=== PATIENT | female | born 1970 | race American Indian/Alaskan Native ===

== ENCOUNTER 2018-05-19 06:18 | Inpatient (IN) | payer BC ==
--- NOTE | 2018-05-15 11:02 | Anesthesia Consultation ---
Anesthesia Consult and Med Hx Date of service: 05/15/18 - Airway Anesthetic Teeth Evaluation: Good ROM Head & Neck: Adequate Mental/Hyoid Distance: Adequate Mallampati Class: Class II Intubation Access Assessment: Probably Good - Pulmonary Exam CTA: Yes - Cardiac Exam Cardiac Exam: RRR - Pre-Operative Health Status ASA Pre-Surgery Classification: ASA2 Proposed Anesthetic Plan: General - Pre-Anesthesia Comment Pre-Anesthesia Comments: Posterior dental implant - Pulmonary Hx Smoking: Yes (quit x 5 years) - Central Nervous System Hx Psychiatric Problems: Yes - Hematic Hx Anemia: Yes - Other Systems Hx Cancer: No
[2018-05-15 11:05] LABS: Basophils % (Auto) 0.7 % (0.0-1.8); Eosinophils # (Auto) 0.1 K/mm3 (0.0-0.4); Eosinophils % (Auto) 1.1 % (0.0-4.3); Hematocrit 41.2 % (30.3-42.9); Hemoglobin 13.7 gm/dl (10.1-14.3); Lymphocytes # (Auto) 1.8 K/mm3 (1.2-5.4); Lymphocytes % (Auto) 24.9 % (13.4-35.0); Mean Corpuscular HGB Conc 33 % (30-34); Mean Corpuscular Volume 83 fl (79-97); Monocytes # (Auto) 0.7 K/mm3 (0.0-0.8); Monocytes % (Auto) 9.8 % (0.0-7.3); Platelet Count 262 K/mm3 (140-440); Red Blood Count 4.99 M/mm3 (3.65-5.03); Red Cell Distribution Width 13.4 % (13.2-15.2)
[2018-05-15 11:18] LABS: BUN/Creatinine Ratio 17; Blood Urea Nitrogen 10 mg/dL (7-17); Calcium 9.3 mg/dL (8.4-10.2); Hemolysis Index 17
--- NOTE | 2018-05-18 16:55 | History and Physical Report ---
History of Present Illness Date of examination: 05/15/18 History of present illness: Patient has been reassessed/reevaluated. H&P has been reviewed. No interval changes. This is a 48 years old female who presents with complains of menorrhagia, dysmenorrhea, pelvic pain and bowel problems, but denies abnormal pap smears, metrorrhagia, dyspareunia, post-coital bleeding, abnormal periods, abnormal vaginal discharge, breast mass or lumps, depression, anxiety, urinary symptoms, chest pain, palpitations, shortness of breath, leg swelling, back pain, abdominal pain and headaches. The patient notes that she is sexually active and uses contraception. The patient reports that she has regular menses and cycles q 26-28 days. The patient also presents with menstrual disorder. The symptoms began >1 year ago. She complains of irregular menses, heavy bleeding, dysmenorrhea and history of fibroids, but denies mid-cycle spotting, lack of menses, clotting, history of ovarian cysts, history of thyroid disease, history of PCOS, history of bleeding disorder, lightheadedness, fatigue and cramping. Menstrual flow la sts 6 days and 7 days. Patient reports that for pain she uses Tylenol. The patient also presents with uterine fibroids. She complains of menorrhagia, abdominal pain, abdominal pressure, pelvic pain, pelvic pressure and intermenstrual bleeding. Treatment tried to date includes uterine artery embolization. Prior to today's visit the patient has had US of pelvis. Patient's symptoms when present disrupts her normal daily activities Patient desires definitive treatment Vital Signs: Patient Profile: 48 Years Old Female LMP: 04/28/2018 Height: 67 inches (170.18 cm) Weight: 184 pounds BMI: 28.82 Menstrual History: LMP (date): 04/28/2018 Current Method of Contraception: BTL Date of Last Pap Smear: 02/15/2018 Past History : 7 Term Births: 1 Premature Births: 0 Living Children: 1 Para: 1 Mult. Births: 0 Prev : 0 Aborta: 6 Elect. Ab: 3 Spont. 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 of genital herpes: yes Partner hx. of genital herpes: yes Hx of STD: None Current Allergies (reviewed today): * LATEX (Critical) Past Medical History: Fibromyalgia Fibroids Past Surgical History: Lsc Tubal Ligation (2002) UFE (2011) Right foot D&C:x 4 Social History: Marital Status: Children: 1 Occupation: Customer Services Patient is Smoking History: Patient has never smoked. Risk Factors: Smoked Tobacco Use: Former smoker Smokeless Tobacco Use: Never Drug use: no HIV high-risk behavior: no Alcohol use: yes Exercise: no Seatbelt use: 100 % PAP Smear History: Date of Last PAP Smear: 02/15/2018 Review of Systems General Complains of fatigue. Denies fever, chills, sweats, anorexia, weakness, malaise, weight loss and sleep disorder. Complains of menorrhagia, pelvic pain and painful periods. Denies vaginal discharge, incontinence, dysuria, hematuria, urinary frequency, amenorrhea, abnormal vaginal bleeding, genital sores, decreased libido, painful sex, urinary urgency, hot flashes, vaginal dryness, vaginal itching and vaginal odor. CV Denies chest pains, palpitations, syncope, dyspnea on exertion, orthopnea, PND and peripheral edema. Resp Denies cough, dyspnea at rest, excessive sputum, hemoptysis, wheezing and pleurisy. GI Denies nausea, vomiting, diarrhea, constipation, change in bowel habits, abdominal pain, melena, hematochezia, jaundice, gas/bloating, indigestion/heartburn, dysphagia and odynophagia. Breast Denies left breast lump, right breast lump, nipple discharge, bloody discharge from nipple, breast pain, abnormal mammogram and breast enlargement. Psych Denies depression, anxiety, irritability and mood swings. Past History Past Medical History: other (See HPI) Past Surgical History: Other (See HPI) Social history: , full code, other (See HPI) Family history: other Medications and Allergies Allergies Allergy/AdvReac Type Severity Reaction Status Date / Time latex Allergy Blisters Verified 05/10/18 17:02 Home Medications Medication Instructions Recorded Confirmed Last Taken Type Duloxetine HCl [DULoxetine] 30 mg PO DAILY 05/10/18 05/19/18 05/18/18 17:00 History Active Meds: Active Medications Lactated Ringer's (Lactated Ringers) 1,000 mls @ 100 mls/hr IV DIRECT RAMBO Review of Systems Constitutional: other (See HPI) Exam - Physical Exam Narrative exam: PHYSICAL EXAM HEENT: normocephalic, no lesions or deformities Neck/Thyroid: supple, thyroid normal Skin no significant abnormal lesions or rashes Chest: respiratory effort normal, clear to auscultation CV: regular, normal S1-S2, no murmur, no rub, no gallop Abdomen: normal bowel sounds, soft, nontender, no HSM obese Musculoskeletal: grossly normal ROM in joints, no joint tenderness or muscle weakness Neuro: no gross anomalities Extremities: no clubbing, cyanosis, or edema 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 Questions answered. Discussed with patient various medical, surgical and radiological therapies common for treatment including myomectomy hysterectomy and uterine artery embolization Patient desires definitive treatment Patient desires hysterectomy Discussed risks and benefits of laparotomy, laparoscopy, vaginal and robotic assisted approaches for hysterectomies Patient desires robotic assisted total hysterectomy. Yvette to precert and schedule Patient desires robotic assisted total hysterectomy. Consent reviewed and signed . The risks and alternatives for this surgery were reviewed with the patient. Discuss the risks of the surgery including inf ection, bleeding possibly heavy enough to require a blood transfusion, possible damage to bowel, bladder or ureter. Patient understand that this surgery with make her sterile.Patient understands if her ovaries are removed she will become menopausal. Also if unable to complete robitcally a laparotomy may be required. Patient advised the small risks of spreading of malignancy if morcellator is used during the surgery patient understands and approve of use if necessary (2) Menorrhagia Current Visit: No Status: Acute Qualifiers: Menorrahagia type: with regular cycle Qualified Code(s): N92.0 - Excessive and frequent menstruation with regular cycle Plan to address problem: Probably secondary to # 1 (3) Dysmenorrhea Current Visit: No Status: Acute Plan to address problem: Probably secondary to # 1 (4) Fibromyalgia Current Visit: No Status: Chronic
[~2018-05-19 06:18] MED LIST: LACTATED RINGERS 1,000 ML IV SCH; PEPCID PO NR; VERSED IV NR
[2018-05-19] MEDS ORDERED: ANCEF/STERILE WATER 2 GM/20 ML IV NR (07:00)
[2018-05-19] MEDS ORDERED: MARCAINE 0.5% INFILTRATI ONE (07:24)
[2018-05-19] MEDS ORDERED: VERSED ONE (07:24)
[2018-05-19] MEDS ORDERED: SUBLIMAZE ONE ×2 (07:24→07:27)
[2018-05-19] MEDS ORDERED: DECADRON ONE ×2 (07:26→07:28)
[2018-05-19] MEDS ORDERED: XYLOCAINE 1% 20 mL ONE (07:26)
[2018-05-19] MEDS ORDERED: DIPRIVAN 10 MG/ML IV ONE ×2 (07:27→08:30)
[2018-05-19] MEDS ORDERED: XYLOCAINE MPF 2% ONE (07:28)
[2018-05-19] MEDS ORDERED: METHYLENE BLUE ONE ×2 (07:28→11:53)
[2018-05-19] MEDS ORDERED: ZOFRAN ONE (07:28)
[2018-05-19] MEDS ORDERED: ZEMURON IV ONE (07:28)
[2018-05-19] MEDS ORDERED: MARCAINE-EPI 0.25%-1:200,000 INFILTRATI ONE (07:29)
[2018-05-19] MEDS ORDERED: NEOSPORIN GU IR ONE ×2 (07:29→09:05)
[2018-05-19] MEDS ORDERED: TYLENOL PO NR (08:00)
[2018-05-19] MEDS ORDERED: NEURONTIN PO NR (08:00)
--- NOTE | 2018-05-19 08:57 | Anesthesia Day of Surgery ---
Anesthesia Day of Surgery - Day of Surgery Patient Examined: Yes Patient H&P Reviewed: Yes Patient is NPO: Yes Beta Blockers: No Cardiac Clearance: No Pulmonary Clearance: No Jean's Test: N/A
--- NOTE | 2018-05-19 09:03 | Anesthesia Consultation ---
Anesthesia Consult and Med Hx Date of service: 05/19/18 - Airway Anesthetic Teeth Evaluation: Good ROM Head & Neck: Adequate Mental/Hyoid Distance: Adequate Mallampati Class: Class III Intubation Access Assessment: Probably Good - Pulmonary Exam CTA: Yes - Cardiac Exam Cardiac Exam: RRR - Pre-Operative Health Status ASA Pre-Surgery Classification: ASA2 Proposed Anesthetic Plan: General Nerve Block: TAP block - Pulmonary Hx Smoking: Yes (quit x 5 years) - Central Nervous System Hx Psychiatric Problems: Yes - Hematic Hx Anemia: Yes - Other Systems Hx Cancer: No - Additional Comments Anesthesia Medical History Comments: ASA II 48 y.o.f. with history of anxiety/depression, bilateral tubal ligation, and uterine fibroids is scheduled for robotic hysterectomy. Patient has had no problems with anesthesia in past
[2018-05-19] MEDS ORDERED: NACL 0.9% IR ONE ×2 (09:05)
--- NOTE | 2018-05-19 09:05 | Event Note ---
Date: 05/19/18 (Difficult Airway New Designation ) Intubation Note: Patient was evaluated in preop holding area. No airway problems were noted and ariway was reassuring. During induction, patient required two hand mask ventilation. Patient required three attempts to successfully secure airway; first two attempts were conducted via direct laryngoscopy and metal mixer noted that patient had anterior positioning cords (Grade III) view. ETT unable to pass. Resumed patient D blade CMAC used to obtain Grade 1 view. Decadron 8mg IV was given to minimize/treat possible glottic swelling due to multiple attempts. Situation warrants that patient is designated a "difficult airway" for future surgeries.
[2018-05-19] MEDS ORDERED: NEO SYNEPHRINE/NS Syringe(OR USE) IV ONE ×2 (09:18→12:50)
[2018-05-19] MEDS ORDERED: DILAUDID IV PRN (09:32)
[2018-05-19] MEDS ORDERED: SUBLIMAZE IV PRN (09:32)
[2018-05-19] MEDS ORDERED: ZOFRAN IV PRN (09:32)
[2018-05-19] MEDS ORDERED: METHYLENE BLUE IV ONE (11:30)
[2018-05-19] MEDS ORDERED: DILAUDID ONE (11:58)
[2018-05-19] MEDS ORDERED: METHYLENE BLUE IRRIGATION ONE (12:45)
[2018-05-19] MEDS ORDERED: BLOXIVERZ ONE (13:15)
[2018-05-19] MEDS ORDERED: ROBINUL ONE (13:15)
--- NOTE | 2018-05-19 13:24 | Operative Report ---
Operative Report Operative Report: Date of procedure: 05/19/2018 Pre-operative diagnosis: Symptomatic leiomyomata with dysmenorrhea menorrhalgia failed conservative treatment Post-operative diagnosis: Same plus possible endometriotic diagnosis and pelvic adhesive disease Procedure name(s):Robotic Assisted Total Hysterectomy with bilateral s alpingectomy and repair of cystotomy Surgeon: Kaleb Deleon MD Gin Clerk: Camila Juares certified medical biller Anesthesia: General EBL: 75 ML Complications: Intraoperative cystotomy Findings: 14-16 week size uterus with multiple leiomyomata bilaterally interrupted fallopian tubes with normal ovaries bilaterally patient with adhesions posterior cul-de-sac is large intestines also adhesions on the second and cul-de-sac to the anterior abdominal wall and round ligament. Specimen(s): Uterus with cervix and bilateral fallopian tubes Procedure: Patient was brought to the operating room where general anesthesia was induced without difficulty. Patient was placed in the dorsal lithotomy position. Prepped and draped in the usual sterile manner for robotic procedure. Butterfield catheter was placed without difficulty. Speculum was placed in the vagina. A large V-Care Uterine manipulator was placed without difficulty. Attention was now switched to the patient's abdomen. A vertical supra-umbilicus incision was made with a scalpel. A 10-12 trocar was placed in this incision under direct visualization. Intra-abdominal placement was verified with no evidence of internal organ damage. The patient pelvic findings were noted as above. It was determined that the patient was a candidate for robotic procedure. On both sides the umbilical incision at about 8 cm, incisions were made for robotic trocar. Each robotic trocar was placed under direct visualization with no evidence of internal organ damage. Two phlebotomy lab assistant ports were then placed. One 5 mm trocar was placed 2 fingerbreadths above the right iliac crest. The second [address] between the camera port and the right robotic arms port after my positioning under the operating ríos during the surgery when noted needed additional retraction to release the cul-de-sac i adhesions and for manipulating the uterus surgery with adhesions noted to be lysed.. At this time the patient was placed in extreme Trendelenburg. The da Osmin robot was then docked on the patient's left side. The trocars connected to the robot appropriately. At this time I took my place under the robotic operating ríos. The posterior cul-de-sac adhesions were then noted and taken down robotically to try to recreate posterior cul-de-sac. Starting on the patient's right side the mesosalpinx of the distal tube were cauterized and cut and the tube was removed through the lower engineering inspection assistant port. Utero-ovarian complex was cauterized and cut. This was followed by cauterizing and cutting the right fallopian tube and right round ligament. The broad ligament was then opened. The bladder flap was formed anteriorly. The posterior broad ligament was then excised. The uterine vessels were skeletonized. The ureter was clearly seen out of the operative field. The bladder was pushed away from the anterior uterus. Attention was then switched to the patient's left side. The same procedure was repeated on the left side with perform the salpingectomy followed by isolating the uterine vessels cauterized and cutting and completing the bladder flap from the left side. At this time did have some difficulty manipulating the uterus attempt to reposition the care manipulator which appears to have resistance from an intracavatary lesion and the V care manipulator fell mostly appearing the lower uterine segment instead of the fundus. After inspecting the bladder flap insured no evidence of bladder injury, the colpotomy was then started anteriorly because of the scarring posterior the V care could not be positively identified. Incision started at 10:00 until the V-Care could be seen. This incision was extended from 10:00 to 2:00. Then from 10:00 to 6:00. Then from 2:00 to 6:00. At this time colpotomy was complete with no evidence of adjacent organ damage. The phlebotomy lab assistant remove the uterus from through the colpotomy site. The vaginal cuff was irrigated and cauterized and found to be hemostatic. The cuff was closed with roboticly using 0 V- Lock suture. This closure was hemostatic after irrigation and Bovie. Inspecting the bladder flap posterior bladder wall appears look thin. At this time inflated the bladder with methylene blue. After surgery approximately 120 mL of fluid two small cystotomies identified. This time cystotomy repair was done robotically with 20 and 3-0 Vicryl. The bladder was re-inflated to approximately 140 mL of methylene blue stained fluid with no leaking noted. All pedicles were inspected and found to be hemostatic. The ureters were identified bilaterally and found to be functioning normally. Patient received methylene blue IV and no evidence of leaking from either ureter. The Butterfield catheter was unclamped. Jones was placed on the cuff and pedicles for postoperative hemostasis . All instruments were then removed. The large trocar sites were closed in layers and 4-0 Vicryl. The smaller incisions were closed subcuticularly with 4-0 Vicryl. The patient tolerated procedure well. She was awakened in the operating room and accompanied to the recovery room in good condition.
[2018-05-19] MEDS ORDERED: D5LR 1,000 ML IV ONE (14:15)
[2018-05-19] MEDS ORDERED: NORCO 5/325 PO PRN (14:55)
[2018-05-19] MEDS ORDERED: D5LR 1,000 ML IV SCH (14:55)
[2018-05-19] MEDS ORDERED: MILK OF MAGNESIA PO PRN (14:55)
[2018-05-19] MEDS: TORADOL IV SCH (17:45)
[2018-05-19] MEDS: ANCEF/NS 1 GM/50 ML 1 GM/50 ML BAG IV SCH (17:49)
--- NOTE | 2018-05-19 18:38 | Event Note ---
Date: 05/19/18 Day of surgery. Discuss operative findings with patient. Discussed the adhesions and possible endometriosis and explained the cystotomy and need for prolonged Butterfield catheter. All questions answered. Patient without fever. Will ambulate in halls this evening. Good urine output. We will continue routine postoperative care. Will obtain H&H this evening.
[2018-05-19 19:28] LABS: Hematocrit 36.5 % (30.3-42.9); Hemoglobin 12.1 gm/dl (10.1-14.3)
[2018-05-20] MEDS: COLACE PO SCH ×2 (00:07→11:23)
[2018-05-20] MEDS: TORADOL IV SCH ×3 (00:11→11:23)
[2018-05-20] MEDS: ANCEF/NS 1 GM/50 ML 1 GM/50 ML BAG IV SCH (02:03)
[2018-05-20 06:31] LABS: Hematocrit 34.1 % (30.3-42.9); Hemoglobin 11.2 gm/dl (10.1-14.3)
--- NOTE | 2018-05-20 13:12 | Discharge Summary ---
Providers - Providers Date of Admission: 05/19/18 13:25 Date of discharge: 05/20/18 Attending physician: RAMA ORTEGA Primary care physician: DEVELOPMENT EDUCATOR Hospitalization Condition: Good Procedures: Robotic Assisted Total Hysterectomy with bilateral salpingectomy and repair of cystotomy Hospital course: See Operative note and event note. Today resting in bed with SCD's on and kramer catheter draining clear greenish urine, no obvious of blood. ~700mL urine in kramer bag. She has no complaints and requests d/c home Disposition: DC- TO HOME OR SELFCARE - Discharge Diagnoses (1) History of robot-assisted laparoscopic hysterectomy Status: Acute (2) Intraoperative bladder injury Status: Acute Core Measure Documentation - Palliative Care Palliative Care/ Comfort Measures: Not Applicable - Core Measures Any of the following diagnoses?: none Exam - Constitutional Vitals: Temp Pulse Resp BP Pulse Ox 98.3 F 107 H 18 110/55 95 05/20/18 12:10 05/20/18 12:10 05/20/18 12:10 05/20/18 12:10 05/20/18 12:10 General appearance: Present: no acute distress - Respiratory Respiratory effort: normal Respiratory: bilateral: CTA - Extremities Extremities: no ischemia, No edema - Abdominal General gastrointestinal: Present: soft, non-tender, non-distended, normal bowel sounds Female genitourinary: Present: deferred - Integumentary Integumentary: Present: clear, warm, dry (Incisions c/d/i, no s/s infection) - Psychiatric Psychiatric: appropriate mood/affect, intact judgment & insight, memory intact, cooperative - Neurologic Neurologic: moves all extremities Plan Activity: other (No sex, no driving, ambulate ~1mile on your property a day. Void frequently) Weight Bearing Status: Weight Bear as Tolerated Diet: regular (eat small meals frequently, Drink ~90oz water a day) Wound: open to air, keep clean and dry Special Instructions: no heavy lifting (greater and 25 pounds) Follow up with: MICHELLE LEMUS MD [Primary Care Provider] - 7 Days RAMA ORTEGA MD [Staff Physician] - 05/22/18 9:45 am Prescriptions: HYDROcodone/APAP 5-325 [[place] 5-325 mg TAB] 2 each PO Q6HR PRN #20 tablet PRN Reason: Pain, Moderate (4-6)
--- NOTE | 2018-05-20 14:09 | Event Note ---
Date: 05/20/18 Increasing tachycardia, uncertain etiology. She denies CP, SOB. No evidence of bleeding, anxiety, no history of thyroid disease. Will hold d/c and chk h/h, TSH and EKG. Patient aware and agrees with plan
[2018-05-20 14:47] LABS: Hematocrit 33.7 % (30.3-42.9); Hemoglobin 11.1 gm/dl (10.1-14.3)
--- NOTE | 2018-05-20 19:48 | Event Note ---
Date: 05/20/18 Patient has been stable all day with mild tachycardia, she requests discharge home. No complaints. EKG and labs reviewed. Will allow home, Precautions given.
[2018-05-20 22:22] VITALS: BP 124/69
[2018-05-21] MEDS ORDERED: CYMBALTA PO SCH (10:00)
--- NOTE | 2018-06-13 15:50 | Query- Outcome Clarification ---
Brandt Badillo___Pancho Date:____06/13/18 Sliver Chopper/CDS:____Hamzah Phone#:___[phone] Exercise your independent professional judgment when responding to this query. Questions asked do not imply a particular answer is desired or expected. We greatly appreciate your clarification on this issue. Clinical Documentation States: 48 years old female presents with uterine fibroids. Operative Report: Date of procedure: 05/19/2018 Pre-operative diagnosis: Symptomatic leiomyomata with dysmenorrhea menorrhalgia failed conservative treatment Post-operative diagnosis: Same plus possible endometriotic diagnosis and pelvic adhesive disease Procedure name(s):Robotic Assisted Total Hysterectomy with bilateral salpingectomy and repair of cystotomy Surgeon: Kaleb Deleon MD Complications: Intraoperative cystotomy Findings: 14-16 week size uterus with multiple leiomyomata bilaterally interrupted fallopian tubes with normal ovaries bilaterally patient with adhesions posterior cul-de-sac is large intestines also adhesions on the second and cul-de-sac to the anterior abdominal wall and round ligament. Procedure:"After surgery approximately 120 mL of fluid two small cystotomies identified. This time cystotomy repair was done robotically with 20 and 3-0 Vicryl." Please clarify the following based on the above: A diagnosis of ___Repair of cystotomy___, is documented and the patient underwent ____Robotic Assisted Total Hysterectomy with bilateral salpingectomy___ procedure. Please specify if the above mentioned diagnosis is; Please state your response below and also document the same in your Progress Notes and/or Discharge Summary and indicate if the condition was present on admission. PHYSICIAN RESPONSE: [ ] Clinically insignificant [ ] Routinely expected, for procedure [ ] Integral or inherent to the procedure [ ] Not related to the procedure [ ] A complication of care [ ] Other, please specify; Present on Admission: [ ] Yes (Y) [ ] Clinically undeterminable (W) [ ] No (N) Please also document response in your Progress Notes and/or Discharge Summary and indicate if the condition was present on admission. MTDD
== END 2018-05-20 22:20 | disposition home or self-care (01) | DRG 743 ==
LOC: OR 06:18 → OB 13:25
PROVIDERS: ADMIT Obstetrics & Gynecology; ATTEND Obstetrics & Gynecology
PROC: 0TJB4ZZ Inspection of Bladder, Percutaneous Endoscopic Approach (ICD-10-PCS; principal; 2018-05-19)
PROC: 0UT94ZZ Resection of Uterus, Percutaneous Endoscopic Approach (ICD-10-PCS; 2018-05-19)
PROC: 0UT74ZZ Resection of Bilateral Fallopian Tubes, Percutaneous Endoscopic Approach (ICD-10-PCS; 2018-05-19)
PROC: 8E0W4CZ Robotic Assisted Procedure of Trunk Region, Percutaneous Endoscopic Approach (ICD-10-PCS; 2018-05-19)
DX: D25.1 Intramural leiomyoma of uterus (principal); N92.0 Excessive and frequent menstruation with regular cycle; M79.7 Fibromyalgia; F41.9 Anxiety disorder, unspecified; F32.9 Major depressive disorder, single episode, unspecified; R00.0 Tachycardia, unspecified; N73.6 Female pelvic peritoneal adhesions (postinfective); N94.6 Dysmenorrhea, unspecified; Z98.890 Other specified postprocedural states; Z90.710 Acquired absence of both cervix and uterus; Z87.891 Personal history of nicotine dependence; Z98.51 Tubal ligation status; Z91.040 Latex allergy status; Z79.899 Other long term (current) drug therapy
CPT/HCPCS: 36415; 64450; 80048; 84443; 84703; 85014; 85018; 85025; 86850; 86900; 86901; 88302; 88305; 88307; 93005; 93010; G0378; A4217; J0690; J1100; J1170; J1885; J2250; J2370; J2405; J2704; J2710; J3010; J7120; J7121; Q9968

== ENCOUNTER 2018-05-25 22:41 | Emergency (ER) | payer BC ==
--- NOTE | 2018-05-26 00:46 | Emergency Department Report ---
ED Female HPI - General Chief complaint: Urogenital-Female Stated complaint: BOND BAG BLOCKAGE,NO URINE FOR FEW HOURS,BAD PAIN Time Seen by Provider: 05/26/18 00:39 Source: patient Mode of arrival: Ambulatory Limitations: No Limitations - History of Present Illness Initial comments: 48-year-old female presents to ED with complaint of urinary retention. Patient had hysterectomy performed 7 days ago. Went home with Bond in place. Patient states over the last several hours the Bond has not been draining and feels pressure in her bladder. MD Complaint: other (urinary obstruction) -: hour(s) (4) Location: suprapubic Quality: aching Consistency: constant Improves with: none Worsens with: none Are you Now?: No Associated Symptoms: denies other symptoms - Related Data Home Medications Medication Instructions Recorded Confirmed Last Taken Duloxetine HCl [DULoxetine] 30 mg PO DAILY 05/10/18 05/19/18 05/18/18 17:00 Previous Rx's Medication Instructions Recorded Last Taken Type HYDROcodone/APAP 5-325 [[place] 2 each PO Q6HR PRN #20 tablet 05/20/18 Unknown Rx 5-325 mg TAB] Sulfamethoxazole/Trimethoprim 1 each PO BID #6 tablet 05/26/18 Unknown Rx [Bactrim DS TAB] Allergies Allergy/AdvReac Type Severity Reaction Status Date / Time latex Allergy Blisters Verified 05/10/18 17:02 ED Review of Systems ROS: Stated complaint: BOND BAG BLOCKAGE,NO URINE FOR FEW HOURS,BAD PAIN Other details as noted in HPI Comment: All other systems reviewed and negative Constitutional: denies: chills, fever Gastrointestinal: abdominal pain Genitourinary: other (reports no drainage from Bond) ED Past Medical Hx - Past Medical History Hx GERD: Yes Hx Headaches / Migraines: Yes (Migraines) Additional medical history: FIBROMYALGIA - Surgical History Additional Surgical History: UFE. TUBAL LIGATION, Hysterectomy. RIGHT FOOT SURGERY - Social History Smoking Status: Current Some Day Smoker Substance Use Type: None - Medications Home Medications: Home Medications Medication Instructions Recorded Confirmed Last Taken Type Duloxetine HCl [DULoxetine] 30 mg PO DAILY 05/10/18 05/19/18 05/18/18 17:00 History HYDROcodone/APAP 5-325 [[place] 2 each PO Q6HR PRN #20 tablet 05/20/18 Unknown Rx 5-325 mg TAB] Sulfamethoxazole/Trimethoprim 1 each PO BID #6 tablet 05/26/18 Unknown Rx [Bactrim DS TAB] ED Physical Exam - General Limitations: No Limitations General appearance: alert, in no apparent distress - Head Head exam: Present: atraumatic, normocephalic - Eye Eye exam: Present: normal appearance - ENT ENT exam: Present: mucous membranes moist - Neck Neck exam: Present: normal inspection - Respiratory Respiratory exam: Present: normal lung sounds bilaterally. Absent: respiratory distress - Cardiovascular Cardiovascular Exam: Present: normal rhythm, tachycardia - GI/Abdominal GI/Abdominal exam: Present: soft, tenderness (suprapubic), other (bladder distention present) - External exam: Present: other (Bond in place, no urine in bag) - Neurological Exam Neurological exam: Present: alert, oriented X3 - Psychiatric Psychiatric exam: Present: normal affect, normal mood - Skin Skin exam: Present: warm, dry, intact, normal color ED Course Vital Signs 05/25/18 05/26/18 22:56 03:51 Temperature 99.2 F Pulse Rate 104 H 80 Respiratory 18 20 Rate Blood Pressure 138/83 Blood Pressure 132/68 [Left] O2 Sat by Pulse 96 100 Oximetry - Reevaluation(s) Reevaluation #1: 05/26/18 02:10 Bond flushed by nurse. 1400cc in bag. Sample sent to lab. ED Medical Decision Making - Medical Decision Making Bond catheter flushed. Urine flow obtained. Pt feeling much better. Mild UTI on UA. Will prescribe Bactrim. Advised HOT DIP PLATER follow-up. - Differential Diagnosis obstruction, UTI Critical care attestation.: If time is entered above; I have spent that time in minutes in the direct care of this critically ill patient, excluding procedure time. ED Disposition Clinical Impression: Obstructed Bond catheter, UTI (urinary tract infection) Disposition: TO HOME OR SELFCARE Is pt being admited?: No Condition: Stable Instructions: Bond Catheter Placement and Care (ED) Prescriptions: Sulfamethoxazole/Trimethoprim [Bactrim DS TAB] 1 each PO BID #6 tablet Referrals: PRIMARY CARE, [Referring] - 3-5 Days Time of Disposition: 04:18
[2018-05-26 03:38] LABS: Bilirubin,Urine NEG (Negative); Blood,Urine MOD (Negative); Color,Urine Amber (Yellow); Mucus,Urine FEW /HPF; Urobilinogen,Urine < 2.0 mg/dL (<2.0)
[2018-05-26 03:51] VITALS: BP 132/68
== END 2018-05-26 04:28 | disposition home or self-care (01) ==
LOC: ED 22:41
DX: T83.098A Other mechanical complication of other urinary catheter, initial encounter (principal); N39.0 Urinary tract infection, site not specified; K21.9 Gastro-esophageal reflux disease without esophagitis; G43.909 Migraine, unspecified, not intractable, without status migrainosus; M79.7 Fibromyalgia; F17.200 Nicotine dependence, unspecified, uncomplicated; Z98.51 Tubal ligation status; Z90.710 Acquired absence of both cervix and uterus; Z91.040 Latex allergy status
CPT/HCPCS: 51702; 81001

== ENCOUNTER 2018-05-29 11:06 | Outpatient (CLI) | payer BC ==
--- NOTE | 2018-05-29 13:53 | Fluoroscopy Report ---
FLUOROSCOPY CYSTOGRAM STATIC History: Laceration of bladder. Findings: Informed consent was obtained. Sterile technique was utilized. Approximately 300 cc of water-soluble contrast was infused into the bladder through a Butterfield catheter. 10 fluoroscopic images were captured during this exam. The bladder is normal size and contour. No filling defect is identified. There is a focal area of smooth indentation along the right lateral wall of the bladder near the base of the bladder. The etiology of this is unclear. This may represent a compression defect from outside of the bladder. This structure has a smooth well defined border and an overall benign appearance. There is no evidence for extravasation of contrast from the bladder. No vesicoureteral reflux. There is a moderate to large post void residual at the end of this exam. IMPRESSION: No evidence for extravasation of contrast from the bladder. Benign appearing compression defect on the right lateral bladder wall as described. These findings were discussed with Dr. Deleon at the time of the examination.
== END 2018-05-29 11:07 | disposition home or self-care (01) ==
LOC: FLUORO 11:06
PROVIDERS: ATTEND Obstetrics & Gynecology
DX: S37.2 Injury of bladder (principal); G43.909 Migraine, unspecified, not intractable, without status migrainosus; K21.9 Gastro-esophageal reflux disease without esophagitis; F32.9 Major depressive disorder, single episode, unspecified; F41.9 Anxiety disorder, unspecified; F17.210 Nicotine dependence, cigarettes, uncomplicated; Z98.890 Other specified postprocedural states; Z98.51 Tubal ligation status; Z79.899 Other long term (current) drug therapy; Z91.040 Latex allergy status; Z90.710 Acquired absence of both cervix and uterus; Z86.2 Personal history of diseases of the blood and blood-forming organs and certain disorders involving the immune mechanism; X58.XXXS Exposure to other specified factors, sequela
CPT/HCPCS: 51600; 74430; Q9958

== ENCOUNTER 2018-07-18 09:39 | Outpatient (CLI) | payer BC ==
--- NOTE | 2018-07-18 13:23 | Cat Scan Report ---
CT PELVIS WITH AND WITHOUT CONTRAST HISTORY: Pain associated with defecation. TECHNIQUE: Helical CT was performed before and after IV contrast. Oral contrast was administered. Sagittal and coronal reformatted images. FINDINGS: No relevant comparisons at this facility. Hysterectomy changes are suspected. The vaginal cuff is unremarkable. The ovaries are normal. The visualized bowel loops in the pelvis and the appendix are within normal limits. There is no evidence for focal inflammation, mass or obstruction. The rectum and anus are unremarkable. No evidence for perirectal or perianal abscess. The ischiorectal fat is clean. The bladder and distal ureters are unremarkable. No evidence for pelvic mass, adenopathy or fluid collection. The bony pelvis is normal. IMPRESSION: Hysterectomy, otherwise, unremarkable CT pelvis with and without IV contrast. No clear explanation for pain during defecation.
== END 2018-07-18 09:40 | disposition home or self-care (01) ==
LOC: CT 09:39
PROVIDERS: ATTEND Obstetrics & Gynecology
DX: K62.89 Other specified diseases of anus and rectum (principal); K21.9 Gastro-esophageal reflux disease without esophagitis; Z90.710 Acquired absence of both cervix and uterus
CPT/HCPCS: 72194; Q9967